=== PATIENT | female | born 1990 | race Caucasian/White ===

== ENCOUNTER 2016-10-18 16:57 | Emergency (ER) | payer OTHER ==
[2016-10-18] MEDS ORDERED: KETOROLAC 60 MG/2 ML VIAL IM ONE (17:20)
[2016-10-18] MEDS ORDERED: LORazepam 1 MG TABLET PO ONE (17:20)
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
[2016-10-18 17:22] VITALS: RESP 16; TEMP 98.4
--- NOTE | 2016-10-19 08:49 | DI ---
LUMBAR SPINE SERIES, 10/18/2016 5:20 PM: Clinical History: Low back pain. Previous Exam: 05/10/2015. For routine views are submitted. The vertebral bodies are of normal height and size. No fractures are identified. There is chronic mild L3-4 and moderate L4-5 disc space narrowing that is unchanged from the previous exam. On the lateral view, there is a lucency through the region of the pars intra-ml cularis and this was present on the last exam. There is a unilateral left L5 pars intra-articularis d efect to explain this lucency. The pedicles and remaining posterior elements are unremarkable. Mild d egenerative changes present in the left sacroiliac joint. On the previous study, an IUD was visible a nd this is not seen on the current study. Readin. No fracture is identified. 2. Chronic L3-4 and L4-5 disc space narrowing. 3. On the lateral film, a lucency is visible both on the current study in the previous exam at the l evel of the L5 pars interarticularis. On the current study, there is a left unilateral L5 pars defect that would explain this lucency on the lateral film.
--- NOTE | 2016-10-19 08:58 | DI ---
SACRAL COCCYGEAL VIEWS, 10/18/2016 5:20 PM: Clinical History: Sacral pain. Previous Exam: None at this facility. AP and angled AP and lateral views of the sacrum and coccyx are submitted. There is no soft tissue ab normality. The bony structures of the sacrum and coccyx are normal. On the lateral view, the region o f the L5 pars intra-articular is shows a lucency and there is a left unilateral L5 pars defect visibl e on the lumbar spine series obtained earlier today. There is no spondylolisthesis at L5-S1. Reading: Normal sacral coccygeal exam.
== END 2016-10-18 18:21 | disposition home or self-care (01) ==
LOC: ER 16:57
DX: M54.5 Low back pain (principal); M53.3 Sacrococcygeal disorders, not elsewhere classified; V43.52XD Car driver injured in collision with other type car in traffic accident, subsequent encounter
CPT/HCPCS: 72110; 72220; 96372; 99283 ×2; J1885

== ENCOUNTER → 2017-02-01 | Outpatient (CLI) | payer OTHER | LOC: MOB LAB 14:22 | PROVIDERS: ATTEND Obstetrics & Gynecology | DX: N91.2 Amenorrhea, unspecified (principal) | CPT/HCPCS: 36415; 84702 ==